=== PATIENT | female | born 1970 | race Caucasian/White ===

== ENCOUNTER → 2017-10-09 | Outpatient (CLI) | payer BC | END | disposition home or self-care (01) | LOC: KCIC 09:47 | DX: L40.9 Psoriasis, unspecified (principal) | CPT/HCPCS: 71046 ==

== ENCOUNTER 2017-12-12 10:54 | Inpatient (IN) | payer BC ==
[2017-12-12] MEDS ORDERED: MORPHINE SULFATE 4 MG/ML DISP.SYRIN. IV/SQ (11:15)
[2017-12-12 11:19] LABS: ADD MAN DIFF? NO
[2017-12-12 11:21] LABS: BASO # 0.1 x10^3/uL (0.0-0.2); BASO % 1 % (0-3); EOS # 0.1 x10^3/uL (0.0-0.7); EOS % 3 % (0-3); HEMATOCRIT 41.4 % (36.0-47.0); HEMOGLOBIN 14.3 g/dL (12.0-15.5); LYMPH # 1.9 x10^3/uL (1.0-4.8); LYMPH % 37 % (24-48); MEAN CORPUSCULAR HEMOGLOBIN 32 pg (25-35); MEAN CORPUSCULAR HGB CONC 35 g/dL (31-37); MEAN CORPUSCULAR VOLUME 93 fL (79-100); MONO # 0.6 x10^3/uL (0.0-1.1); MONO % 11 % (0-9); NEUT # 2.5 x10^3uL (1.8-7.7); NEUT % 48 % (31-73); PLATELET COUNT 309 x10^3/uL (140-400); RED BLOOD COUNT 4.45 x10^6/uL (3.50-5.40); RED CELL DISTRIBUTION WIDTH 12.8 % (11.5-14.5); WHITE BLOOD COUNT 5.2 x10^3/uL (4.0-11.0)
[2017-12-12] MEDS: NITROGLYCERIN SUBLINGUAL 0.4 MG BOTTLE OF 25. SL ×2 (11:27→11:31)
[2017-12-12] MEDS: IV NORMAL SALINE 1000ML BAG 1,000 ML IV (11:27)
[2017-12-12 11:28] LABS: URINE HCG POC HCG NEGATIVE (Negative)
[2017-12-12 11:30] LABS: PROTHROMBIN TIME PATIENT 12.5 SEC (11.7-14.0)
[2017-12-12 11:33] LABS: ANION GAP 10 (6-14); BLOOD UREA NITROGEN 13 mg/dL (7-20); CALCIUM 9.2 mg/dL (8.5-10.1); CARBON DIOXIDE 28 mmol/L (21-32); CHLORIDE 104 mmol/L (98-107); CREATININE 0.6 mg/dL (0.6-1.0); GFR 106.7; GLUCOSE 110 mg/dL (70-99); POTASSIUM 4.4 mmol/L (3.5-5.1); SODIUM 142 mmol/L (136-145)
[2017-12-12 11:36] LABS: AMPHETAMINE/METHAMPHETAMINE NEG (NEG); BARBITURATES NEG (NEG); BENZODIAZEPINES NEG (NEG); CANNABINOIDS NEG (NEG); COCAINE NEG (NEG); ETHANOL, URINE NEG (NEG); METHADONE NEG (NEG); OPIATES NEG (NEG); PHENCYCLIDINE NEG (NEG)
[2017-12-12 11:40] LABS: ALBUMIN 4.5 g/dL (3.4-5.0); ALK PHOS 80 U/L (46-116); ALT (SGPT) 32 U/L (14-59); AST (SGOT) 28 U/L (15-37); DIRECT BILIRUBIN 0.1 mg/dL (0.0-0.2); LIPASE 104 U/L (73-393); MAGNESIUM 2.1 mg/dL (1.8-2.4); TOTAL BILIRUBIN 0.7 mg/dL (0.2-1.0)
[2017-12-12 11:43] LABS: TROPONINI < 0.017 ng/mL (0.000-0.055)
[2017-12-12 11:48] LABS: CKMB INDEX 0.5 % (0-4); CKMB MASS 0.8 ng/mL (0.0-3.6); CREATINE KINASE 166 U/L (26-192)
[2017-12-12 11:48] LABS: NT-PRO BNP 96 pg/mL (0-124); THYROID STIM HORMONE (TSH) 1.091 uIU/mL (0.358-3.74)
[2017-12-12] MEDS ORDERED: ONDANSETRON PF 4 MG/2 ML VIAL. IV (12:00)
[2017-12-12] MEDS ORDERED: MORPHINE SULFATE 4 MG/ML DISP.SYRIN. IV (12:00)
[2017-12-12 15:09] LABS: TROPONINI < 0.017 ng/mL (0.000-0.055)
[2017-12-12] MEDS ORDERED: ATORVASTATIN CALCIUM 40 MG TABLET. PO (16:30)
[2017-12-12] MEDS ORDERED: ATORVASTATIN CALCIUM 20 MG TABLET PO (16:30)
[2017-12-12 16:41] LABS: CHOLESTEROL 216 mg/dL (0-200); HDLC 58 mg/dL (40-60); LDLC 133 mg/dL (0-100); NON-HDL CHOLESTEROL 158 mg/dL (0-129); TRIGLYCERIDES 123 mg/dL (0-150); VLDLC 25 mg/dL (0-40)
[2017-12-12 16:44] LABS: CHOLESTEROL/HDL RATIO 3.7
[2017-12-12] MEDS: ASPIRIN ENTERIC COATED 325 MG TABLET.DR. PO (17:09)
[2017-12-12] MEDS: ACETAMINOPHEN 325 MG TABLET. PO (17:10)
[2017-12-12] MEDS: ATORVASTATIN CALCIUM 40 MG TABLET. PO (17:14)
[2017-12-12 17:49] LABS: TROPONINI < 0.017 ng/mL (0.000-0.055)
[2017-12-13] MEDS: IV NORMAL SALINE 1000ML BAG 1,000 ML IV (00:08)
[2017-12-13 06:19] LABS: ADD MAN DIFF? NO
[2017-12-13 06:43] LABS: ANION GAP 6 (6-14); BLOOD UREA NITROGEN 14 mg/dL (7-20); CALCIUM 8.7 mg/dL (8.5-10.1); CARBON DIOXIDE 28 mmol/L (21-32); CHLORIDE 106 mmol/L (98-107); CREATININE 0.7 mg/dL (0.6-1.0); GFR 89.3; GLUCOSE 105 mg/dL (70-99); POTASSIUM 4.1 mmol/L (3.5-5.1); SODIUM 140 mmol/L (136-145)
[2017-12-13 06:51] LABS: BASO # 0.1 x10^3/uL (0.0-0.2); BASO % 1 % (0-3); EOS # 0.2 x10^3/uL (0.0-0.7); EOS % 4 % (0-3); HEMATOCRIT 37.5 % (36.0-47.0); HEMOGLOBIN 12.9 g/dL (12.0-15.5); LYMPH # 2.4 x10^3/uL (1.0-4.8); LYMPH % 56 % (24-48); MEAN CORPUSCULAR HEMOGLOBIN 32 pg (25-35); MEAN CORPUSCULAR HGB CONC 35 g/dL (31-37); MEAN CORPUSCULAR VOLUME 93 fL (79-100); MONO # 0.5 x10^3/uL (0.0-1.1); MONO % 11 % (0-9); NEUT # 1.2 x10^3uL (1.8-7.7); NEUT % 28 % (31-73); PLATELET COUNT 274 x10^3/uL (140-400); RED BLOOD COUNT 4.02 x10^6/uL (3.50-5.40); RED CELL DISTRIBUTION WIDTH 12.8 % (11.5-14.5); WHITE BLOOD COUNT 4.2 x10^3/uL (4.0-11.0)
[2017-12-13] MEDS ORDERED: LIDOCAINE 2% 20 ML VIAL. (12:49)
[2017-12-13] MEDS ORDERED: IOHEXOL 300 MG/ML 100ML VIAL. (12:49)
[2017-12-13] MEDS ORDERED: fentaNYL PF VIAL 100 MCG/2 ML VIAL (13:12)
[2017-12-13] MEDS ORDERED: HEPARIN for IV BOLUS 10,000 UNIT/10 ML VIAL. (13:13)
[2017-12-13] MEDS ORDERED: VERAPAMIL 5 MG/2 ML VIAL. (13:13)
[2017-12-13] MEDS ORDERED: MIDAZOLAM HCL/PF 2 MG/2 ML VIAL. (13:13)
[2017-12-13] MEDS ORDERED: NITROGLYCERIN 200 MCG/2 ML SYRINGE FOR CATH/VASC LAB. (13:13)
[2017-12-13] MEDS: IOHEXOL 300 MG/ML 100ML VIAL. IART (13:38)
[2017-12-13] MEDS: NITROGLYCERIN 200 MCG/2 ML SYRINGE FOR CATH/VASC LAB. IART (13:38)
[2017-12-13] MEDS: LIDOCAINE 2% 20 ML VIAL. IJ (13:38)
[2017-12-13] MEDS: VERAPAMIL 5 MG/2 ML VIAL. IART (13:39)
[2017-12-13] MEDS: MIDAZOLAM HCL/PF 2 MG/2 ML VIAL. IV (13:40)
[2017-12-13] MEDS: fentaNYL PF VIAL 100 MCG/2 ML VIAL IV (13:40)
[2017-12-13] MEDS: HEPARIN for IV BOLUS 10,000 UNIT/10 ML VIAL. IART (13:41)
[2017-12-13] MEDS ORDERED: CONTRAST GIVEN MC (13:45)
== END 2017-12-13 17:59 | disposition home or self-care (01) | DRG 287 ==
LOC: ER 10:54 → 2 NORTH 11:49
PROC: 4A023N7 Measurement of Cardiac Sampling and Pressure, Left Heart, Percutaneous Approach (ICD-10-PCS; principal; 2017-12-13)
PROC: B2111ZZ Fluoroscopy of Multiple Coronary Arteries using Low Osmolar Contrast (ICD-10-PCS; 2017-12-13)
PROC: B2151ZZ Fluoroscopy of Left Heart using Low Osmolar Contrast (ICD-10-PCS; 2017-12-13)
DX: I20.0 Unstable angina (principal); L40.9 Psoriasis, unspecified; Z86.73 Personal history of transient ischemic attack (TIA), and cerebral infarction without residual deficits
CPT/HCPCS: 36415; 71045; 76700; 80048; 80061; 80076; 80307; 81025; 82553; 83690; 83735; 83880; 84443; 84484; 85025; 85610; 93005; 93306; 93458; 99152; 99153; 99285; 99285-25; C1769; C1892; J1644; J1650; J2250; J3010; J3490; J7030; Q9967

== ENCOUNTER → 2018-07-08 | Outpatient (CLI) | payer BC ==
[2017-12-13 15:00] VITALS: BP 112/48
[~2018-07-08] MED LIST: HYDR-2758 PO; HYDR15SO4 PO
--- NOTE | 2018-07-08 15:04 | KCIC ---
CHEST PA LATERAL dated 07/08/2018 12:00 AM. Comparison: 12/12/2017 Clinical Indication: History of psoriasis [id number] Findings: PA and lateral views of the chest were obtained. Heart and mediastinal contours within normal limits. Lungs are clear without focal consolidation. Vascular interstitium within normal limits. No pleural effusion or pneumothorax. Impression: No acute radiographic abnormality. Electronically signed by: Felipe Noel MD (07/08/2018 3:01 PM) [facility]
== END | disposition home or self-care (01) ==
LOC: KCIC 14:18
PROVIDERS: ATTEND Physician Assistant
DX: L40.0 Psoriasis vulgaris (principal); Z79.899 Other long term (current) drug therapy
CPT/HCPCS: 71046

== ENCOUNTER 2021-01-24 10:29 | Emergency (ER) | payer BC ==
[~2021-01-24] VITALS: Ht 170.2 cm; Wt 75.0 kg
[~2021-01-24 10:29] MED LIST changes: -HYDR-2758 PO; +HYDR-2761 PO; -HYDR15SO4 PO; +HYDR15SO6 PO
[2021-01-24] MEDS ORDERED: ONDANSETRON PF 4 MG/2 ML VIAL. IVP ONE (12:30)
[2021-01-24] MEDS ORDERED: MECLIZINE HCL 12.5 MG TABLET. PO ONE (12:30)
[2021-01-24] MEDS ORDERED: IV NORMAL SALINE 1000ML BAG 1,000 ML IV SCH (12:30)
[2021-01-24 12:41] LABS: BASO # 0.1 x10^3/uL (0.0-0.2); BASO % 1 % (0-3); EOS % 1 % (0-3); HEMATOCRIT 38.8 % (36.0-47.0); HEMOGLOBIN 13.5 g/dL (12.0-15.5); LYMPH # 2.8 x10^3/uL (1.0-4.8); LYMPH % 41 % (24-48); MEAN CORPUSCULAR HEMOGLOBIN 33 pg (25-35); MEAN CORPUSCULAR HGB CONC 35 g/dL (31-37); MEAN CORPUSCULAR VOLUME 94 fL (79-100); MONO # 0.6 x10^3/uL (0.0-1.1); MONO % 9 % (0-9); NEUT # 3.3 x10^3/uL (1.8-7.7); NEUT % 49 % (31-73); PLATELET COUNT 270 x10^3/uL (140-400); RED BLOOD COUNT 4.11 x10^6/uL (3.50-5.40); RED CELL DISTRIBUTION WIDTH 13.2 % (11.5-14.5); WHITE BLOOD COUNT 6.8 x10^3/uL (4.0-11.0)
[2021-01-24 13:02] LABS: CALCIUM 8.6 mg/dL (8.5-10.1); CREATININE 0.8 mg/dL (0.6-1.0); GFR 75.6; POTASSIUM 3.5 mmol/L (3.5-5.1)
[2021-01-24 13:04] LABS: ALBUMIN 4.6 g/dL (3.4-5.0); ALBUMIN/GLOBULIN RATIO 1.5 (1.0-1.7); MAGNESIUM 2.2 mg/dL (1.8-2.4); TOTAL BILIRUBIN 0.5 mg/dL (0.2-1.0); TOTAL PROTEIN 7.6 g/dL (6.4-8.2)
--- NOTE | 2021-01-24 13:21 | RAD ---
EXAM: Chest, single view. HISTORY: Dizziness. COMPARISON: None. FINDINGS: A frontal view of the chest is obtained. There is no infiltrate, pleural effusion or pneumo thorax. The heart is normal in size. IMPRESSION: No acute pulmonary finding. Electronically signed by: Nichole Disla MD (01/24/2021 1:18 PM) [id number]
[2021-01-24 13:26] LABS: BILIRUBIN,URINE NEGATIVE (NEG); CLARITY,URINE CLEAR; COLOR,URINE YELLOW; NITRITE,URINE NEGATIVE (NEG); PH,URINE 6.5 (<5.0-8.0); PROTEIN,URINE NEGATIVE (NEG-TRACE); UROBILINOGEN,URINE 0.2 mg/dL (0.2 mg/dL)
--- NOTE | 2021-01-24 13:43 | RAD ---
CT HEAD AND MAXILLOFACIAL WO History: Reason: dizziness had sinus surgery a few days ago / Spl. Instructions: / History: Comparison: August 21, 2016 Technique: Noncontrast CT imaging was performed of the head and maxillofacial. Coronal and sagittal r econstructions were performed. Exposure: One or more of the following individualized dose reduction techniques were utilized for thi s examination: 1. Automated exposure control 2. Adjustment of the mA and/or kV according to patient size 3. Use of iterative reconstruction technique. Findings: Head CT: No intracranial hemorrhage. No mass effect. No hydrocephalus. Extra-axial spaces are unrema rkable. Maxillofacial CT: No acute maxillofacial fracture. Orbits are unremarkable. Postoperative changes antrostomy defects. Mild bilateral inferior maxillary sinus polypoid mucosal th ickening. Minimal ethmoid sinus mucosal thickening. No air-fluid levels. Lobulated appearance of the nasal turbinates. Mastoid air cells are clear. No acute calvarial fracture. Multilevel cervical spondylosis with facet arthropathy. Impression: Head CT: 1. No acute intracranial abnormality. Maxillofacial CT: 1. No acute maxillofacial fracture. 2. Postoperative changes paranasal sinuses with minimal paranasal sinus disease. Electronically signed by: Murray Cotton DO (01/24/2021 1:41 PM) [facility]
[2021-01-24 13:47] LABS: RBC,URINE 0 /HPF (0-2); WBC,URINE RARE /HPF (0-4)
[2021-01-24 13:50] LABS: BACTERIA,URINE 0 /HPF (0-FEW)
[2021-01-24] MEDS ORDERED: MECL12.582 PO (15:54)
--- NOTE | 2021-01-24 15:54 | PHYS DOC ---
Past Medical History Past Medical History: No Pertinent History Additional Past Medical Histor: PSORIASIS Past Surgical History: Other Additional Past Surgical Histo: SINUS 01/20/21; RIGHT KNEE (ACL) Smoking Status: Never Smoker Alcohol Use: Occasionally Drug Use: None General Adult EDM: Chief Complaint: DIZZY/LIGHT HEADED HPI: HPI: Patient is a 50 year old female who presents to the ED today complaining of dizziness that began this morning. Patient states she had sinus surgery on last week which is 4 days ago. She states she was sent home with pain medicine specifically oxycodone, prednisone and amoxicillin which she has been taking. She woke up this morning and took prednisone. She had breakfast. She states she became dizzy. She states symptoms are worse when she was sitting. She called the ENT and was sent to the ED. Review of Systems: Review of Systems: Constitutional: Denies fever or chills. [] Eyes: Denies change in visual acuity. [] HENT: Denies nasal congestion or sore throat. [] Respiratory: Denies cough or shortness of breath. [] Cardiovascular: Denies chest pain or edema. [] GI: Denies abdominal pain, nausea, vomiting, bloody stools or diarrhea. [] : Denies dysuria. [] Musculoskeletal: Denies back pain or joint pain. [] Integument: Denies rash. [] Neurologic: Reports dizziness. Denies headache, focal weakness or sensory changes. [] Psychiatric: Denies depression or anxiety. [] Heart Score: C/O Chest Pain: N/A Risk Factors: Risk Factors: DM, Current or recent (<one month) smoker, HTN, HLP, family history of CAD, obesity. Risk Scores: Score 0 - 3: 2.5% MACE over next 6 weeks - Discharge Home Score 4 - 6: 20.3% MACE over next 6 weeks - Admit for Clinical Observation Score 7 - 10: 72.7% MACE over next 6 weeks - Early Invasive Strategies Current Medications: Current Medications Medications (Trade) Dose Ordered Sig/Gabriela Start Time Stop Time Status Last Admin Dose Admin Meclizine HCl (Antivert) 12.5 mg 1X ONCE 01/24/21 12:30 01/24/21 12:33 DC 01/24/21 12:53 12.5 MG Ondansetron HCl (Zofran) 4 mg 1X ONCE 01/24/21 12:30 01/24/21 12:33 DC 01/24/21 12:54 4 MG Sodium Chloride 1,000 ml @ 1,000 mls/hr Q1H 01/24/21 12:30 01/24/21 13:29 DC 01/24/21 12:54 1,000 MLS/HR Allergies: Allergies: Allergies Coded Allergies Type Severity Reaction Last Updated Verified No Known Drug Allergies 08/21/16 No Physical Exam: PE: Constitutional: Well developed, well nourished, no acute distress, non-toxic appearance. [] HENT: Normocephalic, atraumatic, bilateral external ears normal, oropharynx moist, no oral exudates, nose normal. [] Eyes: PERRLA, EOMI, conjunctiva normal, no discharge. [] Neck: Normal range of motion, no tenderness, supple, no stridor. [] Cardiovascular:Heart rate regular rhythm, no murmur [] Lungs & Thorax: Bilateral breath sounds clear to auscultation [] Abdomen: Bowel sounds normal, soft, no tenderness, no masses, no pulsatile masses. [] Skin: Warm, dry, no erythema, no rash. [] Back: No tenderness, no CVA tenderness. [] Extremities: No tenderness, no cyanosis, no clubbing, ROM intact, no edema. [] Neurologic: Alert and oriented X 3, normal motor function, normal sensory function, no focal deficits noted. Cranial nerves II through XII intact Psychologic: Affect normal, judgement normal, mood normal. [] Current Patient Data: Labs: Laboratory Tests Test 01/24/21 12:13 01/24/21 12:50 01/24/21 13:11 White Blood Count 6.8 x10^3/uL (4.0-11.0) Red Blood Count 4.11 x10^6/uL (3.50-5.40) Hemoglobin 13.5 g/dL (12.0-15.5) Hematocrit 38.8 % (36.0-47.0) Mean Corpuscular Volume 94 fL (79-100) Mean Corpuscular Hemoglobin 33 pg (25-35) Mean Corpuscular Hemoglobin Concent 35 g/dL (31-37) Red Cell Distribution Width 13.2 % (11.5-14.5) Platelet Count 270 x10^3/uL (140-400) Neutrophils (%) (Auto) 49 % (31-73) Lymphocytes (%) (Auto) 41 % (24-48) Monocytes (%) (Auto) 9 % (0-9) Eosinophils (%) (Auto) 1 % (0-3) Basophils (%) (Auto) 1 % (0-3) Neutrophils # (Auto) 3.3 x10^3/uL (1.8-7.7) Lymphocytes # (Auto) 2.8 x10^3/uL (1.0-4.8) Monocytes # (Auto) 0.6 x10^3/uL (0.0-1.1) Eosinophils # (Auto) 0.0 x10^3/uL (0.0-0.7) Basophils # (Auto) 0.1 x10^3/uL (0.0-0.2) Sodium Level 143 mmol/L (136-145) Potassium Level 3.5 mmol/L (3.5-5.1) Chloride Level 104 mmol/L (98-107) Carbon Dioxide Level 30 mmol/L (21-32) Anion Gap 9 (6-14) Blood Urea Nitrogen 19 mg/dL (7-20) Creatinine 0.8 mg/dL (0.6-1.0) Estimated GFR (Cockcroft-Gault) 75.6 BUN/Creatinine Ratio 24 (6-20) H Glucose Level 115 mg/dL (70-99) H Calcium Level 8.6 mg/dL (8.5-10.1) Magnesium Level 2.2 mg/dL (1.8-2.4) Total Bilirubin 0.5 mg/dL (0.2-1.0) Aspartate Amino Transferase (AST) 11 U/L (15-37) L Alanine Aminotransferase (ALT) 17 U/L (14-59) Alkaline Phosphatase 64 U/L (46-116) Troponin I Quantitative < 0.017 ng/mL (0.000-0.055) XJ-Muf-V-Type Natriuretic Peptide 248 pg/mL (0-124) H Total Protein 7.6 g/dL (6.4-8.2) Albumin 4.6 g/dL (3.4-5.0) Albumin/Globulin Ratio 1.5 (1.0-1.7) Thyroid Stimulating Hormone (TSH) 1.383 uIU/mL (0.358-3.74) Urine Collection Type Void Urine Color Yellow Urine Clarity Clear Urine pH 6.5 (<5.0-8.0) Urine Specific [place] 1.015 (1.000-1.030) Urine Protein Negative mg/dL (NEG-TRACE) Urine Glucose (UA) Negative mg/dL (NEG) Urine Ketones (Stick) Negative mg/dL (NEG) Urine Blood Negative (NEG) Urine Nitrite Negative (NEG) Urine Bilirubin Negative (NEG) Urine Urobilinogen Dipstick 0.2 mg/dL (0.2 mg/dL) Urine Leukocyte Esterase Negative (NEG) Urine RBC 0 /HPF (0-2) Urine WBC Rare /HPF (0-4) Urine Squamous Epithelial Cells Few /LPF Urine Bacteria 0 /HPF (0-FEW) Urine Mucus Slight /LPF POC Urine HCG, Qualitative Hcg negative (Negative) Laboratory Tests 01/24/21 12:13 Laboratory Tests 01/24/21 12:13 Vital Signs: Vital Signs Date Time Temp Pulse Resp B/P (MAP) Pulse Ox O2 Delivery O2 Flow Rate FiO2 01/24/21 14:33 62 13 106/55 (72) 99 Room Air 01/24/21 11:45 98.2 98.2 EKG: EK interpreted by Dr. Shaikh sinus rhythm heart rate 56 no STEMI[] Radiology/Procedures: Radiology/Procedures: []PROCEDURE: CT HEAD AND MAXILLOFACIAL WO CT HEAD AND MAXILLOFACIAL WO History: Reason: dizziness had sinus surgery a few days ago / Spl. Instructions: / History: Comparison: August 21, 2016 Technique: Noncontrast CT imaging was performed of the head and maxillofacial. Coronal and sagittal reconstructions were performed. Exposure: One or more of the following individualized dose reduction techniques were utilized for this examination: 1. Automated exposure control 2. Adjustment of the mA and/or kV according to patient size 3. Use of iterative reconstruction technique. Findings: Head CT: No intracranial hemorrhage. No mass effect. No hydrocephalus. Extra- axial spaces are unremarkable. Maxillofacial CT: No acute maxillofacial fracture. Orbits are unremarkable. Postoperative changes antrostomy defects. Mild bilateral inferior maxillary sinus polypoid mucosal thickening. Minimal ethmoid sinus mucosal thickening. No air-fluid levels. Lobulated appearance of the nasal turbinates. Mastoid air cells are clear. No acute calvarial fracture. Multilevel cervical spondylosis with facet arthropathy. Impression: Head CT: 1. No acute intracranial abnormality. Maxillofacial CT: 1. No acute maxillofacial fracture. 2. Postoperative changes paranasal sinuses with minimal paranasal sinus disease. Electronically signed by: Murray Cotton DO (01/24/2021 1:41 PM) [facility] DICTATED and SIGNED BY: MURRAY COTTON DO DATE: 01/24/21 [id number] PROCEDURE: PORTABLE CHEST 1V EXAM: Chest, single view. HISTORY: Dizziness. COMPARISON: None. FINDINGS: A frontal view of the chest is obtained. There is no infiltrate, pleur al effusion or pneumothorax. The heart is normal in size. IMPRESSION: No acute pulmonary finding. Electronically signed by: Nichole Mancilla MD (01/24/2021 1:18 PM) [id number] DICTATED and SIGNED BY: NICHOLE MANCILLA MD DATE: 01/24/21 [id number] Course & Med Decision Making: Course & Med Decision Making Pertinent Labs and Imaging studies reviewed. (See chart for details) This is a 50-year-old female patient presented to the ED today complaining of dizziness that began this morning. Patient had sinus surgery 4 days ago and is currently on prednisone, amoxicillin and oxycodone for pain. CT of the head and maxillofacial were negative for any acute findings. Labs are negative. Spoke to patient's ENT, patient was discharged to follow-up with ENT. She feels better after receiving meclizine and IV fluids. We talked about suicide for her dizziness including pain medicine and possibility of constipation. Dragon Disclaimer: Aretha Disclaimer: This electronic medical record was generated, in whole or in part, using a voice recognition dictation system. Departure Departure Impression: Primary Impression: Dizziness Disposition: 01 HOME / SELF CARE / HOMELESS Condition: STABLE Referrals: YEIMY GREENWOOD (PCP) TATYANA PAINTING MD Follow-up in 1 week Patient Instructions: Dizziness Additional Instructions: You were evaluated in the emergency room for dizziness. Your work-up in the emergency room is negative for any acute findings. Please follow-up with your ENT doctor as well as primary care doctor in the course of this week. Try and push fluids, change positions slowly. Scripts Meclizine Hcl (MECLIZINE HCL) 12.5 Mg Tablet 1 TAB PO TID, #30 TAB Prov: ASHKAN CARPIO APRN 01/24/21 ASHKAN CARPIO APRN January 24, 2021 15:54
--- NOTE | 2021-01-24 15:56 | EKG ---
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
[2021-01-24 16:33] VITALS: BP 95/50
== END 2021-01-24 16:51 | disposition home or self-care (01) ==
LOC: ER 10:29
DX: R42 Dizziness and giddiness (principal); M54.2 Cervicalgia
CPT/HCPCS: 36415; 70450; 70486; 71045; 80053; 81001; 81025; 83735; 83880; 84443; 84484; 85025; 93005; 96361; 96374; 99285; J2405; J7030; J8597